=== PATIENT | female | born 1965 | race Caucasian/White ===

== ENCOUNTER → 2017-11-12 | Day surgery (SDC) | payer OTHER ==
[~2017-11-12] VITALS: Ht 162.6 cm; Wt 89.8 kg
[~2017-11-12] MED LIST: CEFADROXIL500 M1 PO; COZAAR50 M1 PO; MULTIVITAMINS1 EAC9 PO; PERCOCET 5-3251 EACH PO; VITAMIN B COMP1 EACH PO; VITAMIN D250000 UNIT PO; WELLBUTRIN XL150 M2 PO; WELLBUTRIN XL300 M2 PO
--- NOTE | 2017-11-12 12:23 | Operative Report ---
Operative/Inv Procedure Report Surgery Date: 11/12/17 Name of Procedure: right subclavian and superior cava venogram Pre-Operative Diagnosis: kinked mediport Post-Operative Diagnosis: kinked mediport Estimated Blood Loss: n/a Surgeon/Bilingual Receptionist: Dr. samaria Bishop MD,Abbe Pratt. Anesthesia: general endotracheal tube Operative Indication: 52 y/o f w/ kinked mediport Operative/Procedure Note Note: I was called into assist Dr. bihsop with the placement of right subclavian mediport placement. Dr. bishop will dicate the rest of the procedure separtely. Dr. bishop was having difficulty passing the wire into the SVC. He was trying to exchange an old mediport for a new one as the old one not working and there was scar around the tract of the catheter. I placed a 5 kazakh sheath over the coronado wire and was able to direct the wire and sheath into the svc. I shot a venogram of the svc and sublclavian vein that showed no signs of stenosis or obstruction. Subsequently Dr Bishop had difficulty passing the breakaway sheath over the wire because of the scar tissue. I therefore placed a glide catheter over the wire and used a glide wire to select the distal ivc . I then placed a stiff anplatz wire into the ivc. we were then able to pass the breakaway sheath into the svc and Dr. bishop was able to complete placement of the mediport.
--- NOTE | 2017-11-12 13:43 | RADIOLOGY REPORT ---
EXAMINATION: XR PORTABLE CHEST CLINICAL INFORMATION: Revision of Port-A-Cath evaluate for pneumothorax. COMPARISON: 10/09/2017. TECHNIQUE: Portable frontal view of the chest was obtained. FINDINGS: There is interval replacement of the Port-A-Cath in the right subclavian vein which was looped on the prior study. Currently the contour of the tubing is normal in appearance with the tip in the mid SVC. There is no evidence of pneumothorax at this time. Again noted is the 1.6 cm oval mass in the right upper lung present on prior studies, the Lungs are otherwise clear by laterally. There is no evidence of pleural effusion. Cardiac silhouette is not enlarged. Central pulmonary vasculature is within normal limits. IMPRESSION: Revision of the Port-A-Cath with no evidence of pneumothorax present at this time.The catheter tip is in the mid SVC.
--- NOTE | 2017-11-14 10:36 | RADIOLOGY REPORT ---
EXAMINATION:\H\ \N\XR CHEST CLINICAL INFORMATION: Intraoperative fluoroscopic imaging. TECHNIQUE: 2 intraoperative fluoroscopic images acquired. FINDINGS: Port-A-Cath in place over the anterior chest wall the tip of which is SVC/RA junction. IMPRESSION: Intraoperative fluoroscopic imaging.
--- NOTE | 2017-11-14 11:19 | Operative Report ---
Operative/Inv Procedure Report Surgery Date: 11/12/17 Name of Procedure: Fluoroscopic-guided Replacement of malfunctioning Port-A-Cath Pre-Operative Diagnosis: Malfunctioning, coiled Port-A-Cath Post-Operative Diagnosis: Same Estimated Blood Loss: scant Surgeon/Mechanical Cad Designer: Krystyna CASTAÑEDA,Abbe Vásquez Anesthesia: local monitored anesthesi Operative/Procedure Note Note: With the patient supine on the OR table, right arm tucked, head not turned, after induction of MAC sedation, the patient's right subclavian area, including the shoulder neck and contralateral chest, were prepped and draped in the usual sterile fashion. Local anesthetic was injected at the 2 previous incisions the tiny one at the stick site and then the pocket a few centimeters below that also the subcutaneous tissue around the existing Port-A-Cath and also into the tunnel , superficially. The patient was repositioned to Trendelenburg. Those 2 incisions were then excised the catheter was dissected isolated superiorly through the smaller incision secured with a clamp and cut off the Port-A-Cath inferiorly and brought up through the small incision thus maintaining the original stick. Next a wire was passed through this gently gradually to try to uncoil and this was done under fluoroscopy I tried several times eventually I removed the original catheter and just manipulated the wire back and forth. It just kept following the coil tract so I consulted a vascular surgeon colleague nearby, (he will dictate this part of the procedure). He was able to straighten this out with a sheath. In the meantime I set up the replacement Port-A-Cath with a new catheter made it about 2 cm longer deliberately perhaps a longer one will not be as prone to coiling. The original Port-A-Cath was excised from the capsule that had formed and the new one with the attached catheter was laid in there and secured in [address] with 2-0 Prolene through the holes in the port, the sutures were kept loose on snaps at this point. Next the catheter was tunneled up subcutaneously with a snap and brought out through the stick site next to the wire. Then as routine I tried to advance the dilator and the peel- away introducer over the wire but it would not go in completely so I needed help with this, the vascular surgeon was able to get it in by switching wires to a stiffer one. Then we were able to advance the new catheter which we confirmed with fluoroscopy. Then using a Anglin needle and heparinized saline solution, the catheter was first aspirated then flushed with approximately 3 mL's, with minimal resistance. The patient was repositioned to neutral, after tying down the 2 Prolenes, the larger incision was closed in layers, 3-0 Vicryl deep and 4- 0 subcuticular Monocryl for the skin, and one subcuticular Monocryl for the stick site. Both areas were covered with Mastisol Steri-Strips Telfa and Tegaderm. Chest x-ray was ordered to be done in the recovery room. Lap and sponge counts were correct. Wound expectancy was clean, IV fluids crystalloid, complications none, patient tolerated the procedure well was awakened and returned to the recovery room in satisfactory condition.
== END ==
LOC: STS 01:29
DX: C18.9 Malignant neoplasm of colon, unspecified (principal); C78.7 Secondary malignant neoplasm of liver and intrahepatic bile duct; T82.524A Displacement of infusion catheter, initial encounter; I10 Essential (primary) hypertension; J44.9 Chronic obstructive pulmonary disease, unspecified; Z87.891 Personal history of nicotine dependence
CPT/HCPCS: 71045; C1725; C1751; J0690; J1644; J2250